=== PATIENT | male | born 1945 | race Caucasian/White ===

== ENCOUNTER 2017-08-07 14:19 | Emergency (ER) | payer MEDICARE, OTHER | END 2017-08-07 14:50 | disposition home or self-care (01) | LOC: E/R 14:19 | DX: R05 Cough (principal); I10 Essential (primary) hypertension; Z79.82 Long term (current) use of aspirin; Z87.891 Personal history of nicotine dependence; Z98.61 Coronary angioplasty status | CPT/HCPCS: 99283 ==

== ENCOUNTER 2018-01-15 20:57 | Emergency (ER) | payer MEDICARE, OTHER ==
[2018-01-15] MEDS: DIPHTH/TET/ACEL PERTUSS (ADULT) 0.5 ML VIAL IM* (23:00)
[2018-01-15] MEDS: NICARDipine HCL 30 MG CAPSULE PO (23:18)
== END 2018-01-15 23:55 | disposition home or self-care (01) ==
LOC: FTE 20:57
DX: S51.852A Open bite of left forearm, initial encounter (principal); I10 Essential (primary) hypertension; W54.0XXA Bitten by dog, initial encounter; Y92.9 Unspecified place or not applicable; Z23 Encounter for immunization; Z79.82 Long term (current) use of aspirin; Z87.891 Personal history of nicotine dependence; Z98.61 Coronary angioplasty status
CPT/HCPCS: 90471; 90715; 99283-25